=== PATIENT | female | born 1990 | race Caucasian/White ===

== ENCOUNTER 2020-04-17 16:37 | Inpatient (IN) ==
[2020-04-17] MEDS ORDERED: Ondansetron 4 MG/2 ML VIAL IVP PRN (18:36)
[2020-04-17] MEDS ORDERED: Naloxone 0.4 MG/ML INJ IVP PRN (18:36)
[2020-04-17] MEDS ORDERED: Ketorolac 15 MG/ML VIAL IVP PRN (18:36)
[2020-04-17 20:06] LABS: Basophils % 0.3 %; Eosinophils # 0.1 K/mcL (0.0-0.6); Eosinophils % 0.9 %; Hematocrit 33.6 % (35.3-44.9); Hemoglobin 11.1 g/dL (11.5-15.4); Immature Granulocytes % 0.5 % (0-4); Lymphocytes # 2.5 K/mcL (0.6-4.6); Lymphocytes % 28.9 %; Mean Corpuscular Hemoglobin 33.7 pg (28.0-33.3); Mean Corpuscular Volume 102.1 fL (83.0-100.0); Mean Platelet Volume 10.1 fL (9.4-12.4); Monocytes # 1.1 K/mcL (0.0-1.3); Monocytes % 12.9 %; Platelet Count 658 K/mcL (140-400); Red Blood Count 3.29 M/mcL (3.82-4.97); Red Cell Distribution Width 13.2 % (11.5-14.5); Segmented Neutrophils % 56.5 %; White Blood Count 8.8 K/mcL (4.3-11.1)
[2020-04-17 20:19] LABS: Blood Urea Nitrogen 27 mg/dL (6-20); Calcium 8.5 mg/dL (8.6-10.3); Carbon Dioxide 25 mEq/L (23-29); Chloride 101 mEq/L (98-107); Glucose 119 mg/dL (70-105); Osmolality,Calculated 286 (280-300); Potassium 4.2 mEq/L (3.5-5.1); Sodium 135 mEq/L (136-145)
[2020-04-18 01:29] LABS: Basophils % 0.3 %; Eosinophils # 0.1 K/mcL (0.0-0.6); Hematocrit 34.8 % (35.3-44.9); Hemoglobin 11.3 g/dL (11.5-15.4); Immature Granulocytes % 0.7 % (0-4); Lymphocytes # 2.3 K/mcL (0.6-4.6); Lymphocytes % 30.5 %; Mean Corpuscular HGB Conc 32.5 g/dL (31.6-35.5); Mean Corpuscular Hemoglobin 33.4 pg (28.0-33.3); Mean Platelet Volume 10.8 fL (9.4-12.4); Monocytes % 12.7 %; Neutrophils # 4.2 K/mcL (1.6-8.9); Platelet Count 606 K/mcL (140-400); Red Blood Count 3.38 M/mcL (3.82-4.97); Red Cell Distribution Width 13.2 % (11.5-14.5); Segmented Neutrophils % 54.8 %; White Blood Count 7.7 K/mcL (4.3-11.1)
[2020-04-18 01:42] LABS: Blood Urea Nitrogen 26 mg/dL (6-20); Calcium 8.4 mg/dL (8.6-10.3); Carbon Dioxide 22 mEq/L (23-29); Chloride 102 mEq/L (98-107); Glucose 119 mg/dL (70-105); Osmolality,Calculated 286 (280-300); Sodium 135 mEq/L (136-145)
[2020-04-18] MEDS: *HR* Heparin 5,000 UNIT/ML VIAL SQ SCH ×2 (05:37→16:39)
[2020-04-18] MEDS ORDERED: Phenytoin Oral Susp 100 MG/4 ML UDC GTUBE SCH (10:45)
[2020-04-18] MEDS: Valproic Acid Oral Soln 250 MG/5 ML UDC GTUBE SCH ×2 (11:22→19:47)
[2020-04-18] MEDS: Baclofen 10 MG TABLET GTUBE SCH ×3 (13:29→19:48)
[2020-04-18] MEDS: diazePAM 5 MG TABLET PO SCH ×2 (13:29→19:48)
[2020-04-18 14:41] LABS: Troponin I < 0.03 ng/mL (< 0.04)
[2020-04-18 18:52] LABS: Thyroid Stimulating Hormone 6.114 mcIU/mL (0.340-5.600)
[2020-04-18] MEDS: Phenytoin Oral Susp 100 MG/4 ML UDC GTUBE SCH (19:48)
[2020-04-19 03:28] LABS: Basophils % 0.3 %; Eosinophils # 0.1 K/mcL (0.0-0.6); Eosinophils % 0.8 %; Hematocrit 33.7 % (35.3-44.9); Hemoglobin 10.8 g/dL (11.5-15.4); Immature Granulocytes % 0.3 % (0-4); Lymphocytes # 2.3 K/mcL (0.6-4.6); Lymphocytes % 30.8 %; Mean Corpuscular Hemoglobin 33.2 pg (28.0-33.3); Mean Corpuscular Volume 103.7 fL (83.0-100.0); Mean Platelet Volume 9.6 fL (9.4-12.4); Monocytes # 0.8 K/mcL (0.0-1.3); Monocytes % 11.1 %; Neutrophils # 4.3 K/mcL (1.6-8.9); Platelet Count 695 K/mcL (140-400); Red Blood Count 3.25 M/mcL (3.82-4.97); Segmented Neutrophils % 56.7 %; White Blood Count 7.6 K/mcL (4.3-11.1)
[2020-04-19 03:54] LABS: Blood Urea Nitrogen 23 mg/dL (6-20); Calcium 7.9 mg/dL (8.6-10.3); Carbon Dioxide 25 mEq/L (23-29); Chloride 101 mEq/L (98-107); Glucose 105 mg/dL (70-105); Osmolality,Calculated 282 (280-300); Potassium 3.9 mEq/L (3.5-5.1); Sodium 134 mEq/L (136-145)
[2020-04-19] MEDS: *HR* Heparin 5,000 UNIT/ML VIAL SQ SCH (04:45)
[2020-04-19] MEDS ORDERED: Total Joint Mixture (50 ml) INTRAART ONE (06:00)
[2020-04-19] MEDS: Valproic Acid Oral Soln 250 MG/5 ML UDC GTUBE SCH ×2 (10:17→23:46)
[2020-04-19] MEDS: Phenytoin Oral Susp 100 MG/4 ML UDC GTUBE SCH (10:17)
[2020-04-19] MEDS: Baclofen 10 MG TABLET GTUBE SCH ×4 (10:18→23:45)
[2020-04-19] MEDS: diazePAM 5 MG TABLET PO SCH ×3 (10:18→23:47)
[2020-04-19] MEDS ORDERED: *HR* FentaNYL (PF) 100 MCG/2 ML VIAL ONE (15:41)
[2020-04-19] MEDS ORDERED: *HR* Midazolam HCl 2 MG/2 ML VIAL ONE (15:41)
[2020-04-19] MEDS ORDERED: Acetaminophen IV 1,000 MG/100 ML INFUS..BTL ONE (15:57)
[2020-04-19] MEDS ORDERED: Ethanol\\Acetic Acid\\Na Ace\\Ben 1,000 ML IRRIG.SOLN IR ONE (16:01)
[2020-04-19] MEDS ORDERED: Vancomycin 1,000 MG VIAL ONE (16:01)
[2020-04-19] MEDS ORDERED: *HR* Propofol 200 MG/20 ML VIAL IVP ONE (16:06)
[2020-04-19] MEDS ORDERED: Lidocaine -MPF 2% 2 ML VIAL ONE ×2 (16:08→18:16)
[2020-04-19 16:29] LABS: Hematocrit 34.2 % (35.3-44.9); Hemoglobin 10.9 g/dL (11.5-15.4)
[2020-04-19] MEDS ORDERED: Clindamycin 900 MG/50 ML 900 MG/50 ML IV.SOLN IVPB ONE ×2 (17:39→17:46)
[2020-04-19] MEDS ORDERED: Tranexamic Acid 1,000 MG/10 ML VIAL ONE (17:56)
[2020-04-19] MEDS ORDERED: Lidocaine HCL 4 ML Topical Solution (Laryng-O-Jet Kit Sterile Pak) TP ONE (18:16)
[2020-04-19] MEDS ORDERED: Ondansetron 4 MG/2 ML VIAL ONE (18:16)
[2020-04-19] MEDS ORDERED: *HR* Rocuronium Bromide 50 MG/5 ML VIAL ONE (18:16)
[2020-04-19] MEDS ORDERED: Dexamethasone 4 MG/ML VIAL ONE (18:18)
[2020-04-19 19:30] LABS: Albumin 3.1 g/dL (3.5-5.7)
[2020-04-19] MEDS ORDERED: *HR* HYDROmorphone (PF) 1 MG/ML SYRINGE IVP PRN (19:43)
[2020-04-19] MEDS ORDERED: Ondansetron 4 MG/2 ML VIAL IVP PRN ×3 (19:43→20:30)
[2020-04-19] MEDS ORDERED: *HR* Promethazine 25 MG/ML VIAL IVP PRN ×2 (19:46→20:30)
[2020-04-19] MEDS ORDERED: MOM Conc 10 ML UD.LIQ PO PRN (20:30)
[2020-04-19] MEDS ORDERED: Ketorolac 15 MG/ML VIAL IVP PRN (20:30)
[2020-04-19] MEDS ORDERED: Ropivacaine/PF 0.5% 24.62 ML, EPINEPHrine 0.25 MG, cloNIDine 0.04 MG, Ketorolac 15 MG, ... INTRAART ONE (20:30)
[2020-04-19] MEDS ORDERED: Sennosides 8.6 MG TABLET PO PRN (20:30)
[2020-04-19] MEDS ORDERED: Naloxone 0.4 MG/ML INJ IVP PRN ×2 (20:30)
[2020-04-19] MEDS: Clindamycin 900 MG/50 ML 900 MG/50 ML IV.SOLN IVPB SCH (23:45)
[2020-04-19] MEDS: Ringers Solution, Lactated 1,000 ML IVC SCH (23:46)
[2020-04-20 04:13] LABS: Basophils % 0.2 %; Hematocrit 23.8 % (35.3-44.9); Immature Granulocytes % 0.6 % (0-4); Lymphocytes # 1.7 K/mcL (0.6-4.6); Lymphocytes % 19.1 %; Mean Corpuscular HGB Conc 32.4 g/dL (31.6-35.5); Mean Corpuscular Hemoglobin 33.9 pg (28.0-33.3); Mean Corpuscular Volume 104.8 fL (83.0-100.0); Mean Platelet Volume 9.7 fL (9.4-12.4); Monocytes # 0.7 K/mcL (0.0-1.3); Neutrophils # 6.3 K/mcL (1.6-8.9); Platelet Count 623 K/mcL (140-400); Red Blood Count 2.27 M/mcL (3.82-4.97); Segmented Neutrophils % 72.1 %; White Blood Count 8.8 K/mcL (4.3-11.1)
[2020-04-20 04:16] LABS: Hemoglobin 7.7 g/dL (11.5-15.4)
[2020-04-20 04:24] LABS: BUN/Creatinine Ratio 81 (6-26); Blood Urea Nitrogen 26 mg/dL (6-20); Calcium 7.8 mg/dL (8.6-10.3); Carbon Dioxide 22 mEq/L (23-29); Chloride 102 mEq/L (98-107); Glucose 111 mg/dL (70-105); Osmolality,Calculated 285 (280-300); Potassium 4.6 mEq/L (3.5-5.1); Sodium 135 mEq/L (136-145); eGFR For African Americans > 60 (> 60); eGFR For Non-African Americans > 60 (> 60)
[2020-04-20 04:25] LABS: Troponin I < 0.03 ng/mL (< 0.04)
[2020-04-20] MEDS: Ringers Solution, Lactated 1,000 ML IVC SCH (06:58)
[2020-04-20] MEDS ORDERED: 0.9 % Sodium Chloride 250 ML IVC SCH (07:00)
[2020-04-20] MEDS: Clindamycin 900 MG/50 ML 900 MG/50 ML IV.SOLN IVPB SCH (07:30)
[2020-04-20] MEDS ORDERED: *HR* Dextrose 50 % in Water (Vial) 50 ML VIAL IVP PRN (07:55)
[2020-04-20] MEDS ORDERED: Dextrose Gel 15 GM/37.5 ML TUBE PO PRN ×2 (07:55)
[2020-04-20] MEDS ORDERED: 0.9 % Sodium Chloride 500 ML IVC ONE ×2 (07:55→09:10)
[2020-04-20] MEDS ORDERED: D5% in Water 1,000 ML IVC PRN (07:55)
[2020-04-20] MEDS ORDERED: Ascorbic Acid 500 MG TABLET PO SCH (08:00)
[2020-04-20] MEDS ORDERED: Multivit/Ca/Min/Fe/FA 1 TAB TABLET PO SCH (09:00)
[2020-04-20] MEDS: Valproic Acid Oral Soln 250 MG/5 ML UDC GTUBE SCH ×2 (09:31→21:13)
[2020-04-20] MEDS: Multivit/Ca/Min/Fe/FA 1 TAB TABLET GTUBE SCH (09:32)
[2020-04-20] MEDS: Baclofen 10 MG TABLET GTUBE SCH ×4 (09:32→21:11)
[2020-04-20] MEDS: Ascorbic Acid 500 MG TABLET GTUBE SCH ×2 (09:32→18:23)
[2020-04-20] MEDS: Docusate Oral Soln 100 MG/10 ML UDC GTUBE SCH ×2 (09:32→21:13)
[2020-04-20] MEDS: polyethylene glycoL 3350 17 GM POWD.PACK GTUBE SCH (09:33)
[2020-04-20] MEDS: Bisacodyl 10 MG RECTAL SUPPOSITORY RC SCH ×2 (09:33→21:12)
[2020-04-20] MEDS: diazePAM 5 MG TABLET PO SCH ×3 (09:33→21:12)
[2020-04-20] MEDS ORDERED: polyethylene glycoL 3350 17 GM POWD.PACK GTUBE SCH ×2 (10:30)
[2020-04-20] MEDS ORDERED: 0.9 % Sodium Chloride 1,000 ML IVC ONE (14:55)
[2020-04-20] MEDS: Acetaminophen IV 1,000 MG/100 ML INFUS..BTL IVPB SCH ×2 (16:00→22:27)
[2020-04-20 18:38] LABS: Hematocrit 27.5 % (35.3-44.9); Hemoglobin 9.1 g/dL (11.5-15.4)
[2020-04-20] MEDS: Phenytoin Oral Susp 100 MG/4 ML UDC GTUBE SCH (21:12)
[2020-04-20 23:03] LABS: Hematocrit 25.6 % (35.3-44.9); Hemoglobin 8.6 g/dL (11.5-15.4)
[2020-04-21 02:13] LABS: Hematocrit 25.1 % (35.3-44.9); Hemoglobin 8.3 g/dL (11.5-15.4)
[2020-04-21] MEDS ORDERED: Isovue-370 500 ML BOTTLE IVP ONE (02:44)
[2020-04-21 05:58] LABS: Basophils % 0.3 %; Eosinophils % 0.5 %; Hematocrit 25.7 % (35.3-44.9); Hemoglobin 8.6 g/dL (11.5-15.4); Immature Granulocytes % 0.4 % (0-4); Lymphocytes # 1.9 K/mcL (0.6-4.6); Lymphocytes % 24.1 %; Mean Corpuscular HGB Conc 33.5 g/dL (31.6-35.5); Mean Corpuscular Hemoglobin 32.8 pg (28.0-33.3); Mean Platelet Volume 9.2 fL (9.4-12.4); Monocytes # 0.7 K/mcL (0.0-1.3); Neutrophils # 5.1 K/mcL (1.6-8.9); Platelet Count 430 K/mcL (140-400); Red Blood Count 2.62 M/mcL (3.82-4.97); Red Cell Distribution Width 16.5 % (11.5-14.5); Segmented Neutrophils % 65.7 %; White Blood Count 7.8 K/mcL (4.3-11.1)
[2020-04-21 06:00] LABS: Mean Corpuscular Volume 98.1 fL (83.0-100.0)
[2020-04-21 07:00] LABS: Blood Urea Nitrogen 19 mg/dL (6-20); Calcium 7.1 mg/dL (8.6-10.3); Carbon Dioxide 21 mEq/L (23-29); Chloride 103 mEq/L (98-107); Glucose 92 mg/dL (70-105); Magnesium 1.9 mg/dL (1.6-2.6); Osmolality,Calculated 280 (280-300); Potassium 3.7 mEq/L (3.5-5.1); Sodium 134 mEq/L (136-145)
[2020-04-21] MEDS: Acetaminophen IV 1,000 MG/100 ML INFUS..BTL IVPB SCH ×3 (09:03→23:46)
[2020-04-21] MEDS: Valproic Acid Oral Soln 250 MG/5 ML UDC GTUBE SCH ×2 (09:08→21:40)
[2020-04-21] MEDS: Docusate Oral Soln 100 MG/10 ML UDC GTUBE SCH ×2 (09:09→21:39)
[2020-04-21] MEDS: Phenytoin Oral Susp 100 MG/4 ML UDC GTUBE SCH ×2 (09:09→21:39)
[2020-04-21] MEDS: Multivit/Ca/Min/Fe/FA 1 TAB TABLET GTUBE SCH (09:11)
[2020-04-21] MEDS: Ascorbic Acid 500 MG TABLET GTUBE SCH ×2 (09:11→17:22)
[2020-04-21] MEDS: diazePAM 5 MG TABLET PO SCH ×3 (09:11→21:40)
[2020-04-21] MEDS: polyethylene glycoL 3350 17 GM POWD.PACK GTUBE SCH (09:11)
[2020-04-21] MEDS: Baclofen 10 MG TABLET GTUBE SCH ×4 (09:15→21:42)
[2020-04-21] MEDS: Ringers Solution, Lactated 1,000 ML IVC SCH (10:22)
[2020-04-21] MEDS: Bisacodyl 10 MG RECTAL SUPPOSITORY RC SCH (10:22)
[2020-04-21 16:50] LABS: Hematocrit 25.3 % (35.3-44.9); Hemoglobin 8.4 g/dL (11.5-15.4)
[2020-04-21] MEDS: Doxycycline 100 MG in 0.9 % Sodium Chloride Mini Bag 100 ML IVPB SCH (17:13)
[2020-04-21] MEDS: metroNIDAZOLE 500 MG TABLET GTUBE SCH ×2 (17:22→21:42)
[2020-04-22 02:30] LABS: Basophils % 0.2 %; Eosinophils # 0.1 K/mcL (0.0-0.6); Eosinophils % 2.1 %; Hematocrit 24.9 % (35.3-44.9); Hemoglobin 8.2 g/dL (11.5-15.4); Immature Granulocytes % 0.7 % (0-4); Lymphocytes # 1.9 K/mcL (0.6-4.6); Lymphocytes % 30.8 %; Mean Corpuscular HGB Conc 32.9 g/dL (31.6-35.5); Mean Corpuscular Hemoglobin 32.3 pg (28.0-33.3); Mean Platelet Volume 9.8 fL (9.4-12.4); Monocytes # 0.5 K/mcL (0.0-1.3); Monocytes % 8.3 %; Neutrophils # 3.6 K/mcL (1.6-8.9); Platelet Count 412 K/mcL (140-400); Red Blood Count 2.54 M/mcL (3.82-4.97); Red Cell Distribution Width 15.5 % (11.5-14.5); Segmented Neutrophils % 57.9 %; White Blood Count 6.1 K/mcL (4.3-11.1)
[2020-04-22 02:41] LABS: Blood Urea Nitrogen 6 mg/dL (6-20); Calcium 7.4 mg/dL (8.6-10.3); Carbon Dioxide 18 mEq/L (23-29); Chloride 100 mEq/L (98-107); Glucose 81 mg/dL (70-105); Magnesium 1.5 mg/dL (1.6-2.6); Osmolality,Calculated 267 (280-300); Potassium 3.7 mEq/L (3.5-5.1); Sodium 130 mEq/L (136-145)
[2020-04-22] MEDS: Ringers Solution, Lactated 1,000 ML IVC SCH (04:06)
[2020-04-22] MEDS: Doxycycline 100 MG in 0.9 % Sodium Chloride Mini Bag 100 ML IVPB SCH ×2 (05:35→17:54)
[2020-04-22] MEDS: Acetaminophen IV 1,000 MG/100 ML INFUS..BTL IVPB SCH ×3 (07:01→22:46)
[2020-04-22] MEDS: Phenytoin Oral Susp 100 MG/4 ML UDC GTUBE SCH ×2 (09:33→21:13)
[2020-04-22] MEDS: polyethylene glycoL 3350 17 GM POWD.PACK GTUBE SCH (09:33)
[2020-04-22] MEDS: Bisacodyl 10 MG RECTAL SUPPOSITORY RC SCH (09:33)
[2020-04-22] MEDS: Docusate Oral Soln 100 MG/10 ML UDC GTUBE SCH ×2 (09:34→21:13)
[2020-04-22] MEDS: Valproic Acid Oral Soln 250 MG/5 ML UDC GTUBE SCH ×2 (09:34→21:13)
[2020-04-22] MEDS: metroNIDAZOLE 500 MG TABLET GTUBE SCH ×3 (09:34→21:13)
[2020-04-22] MEDS: Multivit/Ca/Min/Fe/FA 1 TAB TABLET GTUBE SCH (09:34)
[2020-04-22] MEDS: diazePAM 5 MG TABLET PO SCH ×3 (09:34→21:13)
[2020-04-22] MEDS: Baclofen 10 MG TABLET GTUBE SCH ×4 (09:34→21:13)
[2020-04-22] MEDS: Ascorbic Acid 500 MG TABLET GTUBE SCH ×2 (09:34→17:19)
[2020-04-23] MEDS: Doxycycline 100 MG in 0.9 % Sodium Chloride Mini Bag 100 ML IVPB SCH (05:29)
[2020-04-23 05:52] LABS: Hematocrit 31.6 % (35.3-44.9)
[2020-04-23 06:00] LABS: Hemoglobin 9.9 g/dL (11.5-15.4)
[2020-04-23] MEDS: Acetaminophen IV 1,000 MG/100 ML INFUS..BTL IVPB SCH ×3 (07:42→23:46)
[2020-04-23] MEDS: Docusate Oral Soln 100 MG/10 ML UDC GTUBE SCH ×2 (07:42→20:54)
[2020-04-23] MEDS: diazePAM 5 MG TABLET PO SCH ×3 (07:43→20:54)
[2020-04-23] MEDS: metroNIDAZOLE 500 MG TABLET GTUBE SCH ×2 (07:43→15:17)
[2020-04-23] MEDS: Phenytoin Oral Susp 100 MG/4 ML UDC GTUBE SCH ×2 (07:43→20:53)
[2020-04-23] MEDS: Multivit/Ca/Min/Fe/FA 1 TAB TABLET GTUBE SCH (07:43)
[2020-04-23] MEDS: Ascorbic Acid 500 MG TABLET GTUBE SCH ×2 (07:43→16:53)
[2020-04-23] MEDS: Baclofen 10 MG TABLET GTUBE SCH ×4 (07:43→20:54)
[2020-04-23] MEDS: Bisacodyl 10 MG RECTAL SUPPOSITORY RC SCH (07:44)
[2020-04-23 08:23] LABS: Blood Urea Nitrogen 6 mg/dL (6-20); Calcium 7.2 mg/dL (8.6-10.3); Carbon Dioxide 25 mEq/L (23-29); Chloride 99 mEq/L (98-107); Glucose 175 mg/dL (70-105); Magnesium 1.5 mg/dL (1.6-2.6); Osmolality,Calculated 268 (280-300); Sodium 128 mEq/L (136-145)
[2020-04-23] MEDS ORDERED: polyethylene glycoL 3350 17 GM POWD.PACK GTUBE SCH (09:00)
[2020-04-23] MEDS: Valproic Acid Oral Soln 250 MG/5 ML UDC GTUBE SCH ×2 (09:43→20:54)
[2020-04-24] MEDS: Acetaminophen IV 1,000 MG/100 ML INFUS..BTL IVPB SCH (06:42)
[2020-04-24 07:32] LABS: Blood Urea Nitrogen 8 mg/dL (6-20); Calcium 6.9 mg/dL (8.6-10.3); Carbon Dioxide 24 mEq/L (23-29); Chloride 100 mEq/L (98-107); Glucose 135 mg/dL (70-105); Magnesium 1.9 mg/dL (1.6-2.6); Osmolality,Calculated 266 (280-300); Potassium 4.7 mEq/L (3.5-5.1); Sodium 128 mEq/L (136-145)
[2020-04-24] MEDS: Valproic Acid Oral Soln 250 MG/5 ML UDC GTUBE SCH (09:03)
[2020-04-24] MEDS: Docusate Oral Soln 100 MG/10 ML UDC GTUBE SCH (09:03)
[2020-04-24] MEDS: Ascorbic Acid 500 MG TABLET GTUBE SCH (09:04)
[2020-04-24] MEDS: Bisacodyl 10 MG RECTAL SUPPOSITORY RC SCH (09:04)
[2020-04-24] MEDS: Baclofen 10 MG TABLET GTUBE SCH ×2 (09:04→12:49)
[2020-04-24] MEDS: Multivit/Ca/Min/Fe/FA 1 TAB TABLET GTUBE SCH (09:05)
[2020-04-24] MEDS: diazePAM 5 MG TABLET PO SCH (09:05)
[2020-04-24] MEDS: Phenytoin Oral Susp 100 MG/4 ML UDC GTUBE SCH ×2 (09:06→13:22)
[2020-04-24 15:18] VITALS: BP 85/60
== END 2020-04-24 19:00 | DRG 470 ==
LOC: 3NENU → SUATTDRO 18:36
PROVIDERS: ADMIT Internal Medicine; ATTEND Internal Medicine

== ENCOUNTER 2020-07-17 00:02 | Inpatient (IN) ==
[2020-07-17] MEDS ORDERED: Ondansetron 4 MG/2 ML VIAL IVP PRN (01:26)
[2020-07-17] MEDS ORDERED: Naloxone 0.4 MG/ML INJ IVP PRN (01:26)
[2020-07-17] MEDS ORDERED: Valproic Acid INJ 1,000 MG in 0.9 % Sodium Chloride 100 ML IVPB ONE (01:33)
[2020-07-17] MEDS: Ringers Solution, Lactated 1,000 ML IVC SCH ×2 (03:38→11:06)
[2020-07-17 04:57] LABS: Basophils % 0.4 %; Eosinophils % 0.4 %; Hematocrit 34.2 % (35.3-44.9); Hemoglobin 11.6 g/dL (11.5-15.4); Immature Granulocytes % 0.1 % (0-4); Lymphocytes % 23.9 %; Mean Corpuscular HGB Conc 33.9 g/dL (31.6-35.5); Mean Corpuscular Hemoglobin 34.9 pg (28.0-33.3); Mean Platelet Volume 11.5 fL (9.4-12.4); Monocytes # 0.9 K/mcL (0.0-1.3); Neutrophils # 5.4 K/mcL (1.6-8.9); Platelet Count 254 K/mcL (140-400); Red Blood Count 3.32 M/mcL (3.82-4.97); Red Cell Distribution Width 12.1 % (11.5-14.5); Segmented Neutrophils % 64.2 %; White Blood Count 8.5 K/mcL (4.3-11.1)
[2020-07-17 05:01] LABS: INR 1.3; Prothrombin Time 14.6 Seconds (9.4-12.1)
[2020-07-17 05:19] LABS: Alanine Aminotransferase 14 Units/L (7-52); Albumin 3.8 g/dL (3.5-5.7); Albumin/Globulin Ratio 1.4 (1.1-2.2); Alkaline Phosphatase 93 Units/L (34-104); Aspartate Amino Transferase 18 Units/L (13-39); BUN/Creatinine Ratio 75 (6-26); Bilirubin,Total 0.4 mg/dL (0.3-1.0); Blood Urea Nitrogen 18 mg/dL (6-20); Calcium 8.5 mg/dL (8.6-10.3); Carbon Dioxide 22 mEq/L (23-29); Chloride 106 mEq/L (98-107); Chol/HDL Ratio 2.9 (0-4.9); Cholesterol 109 mg/dL (< 200); Globulin 2.7 g/dL (2.4-3.5); Glucose 117 mg/dL (70-105); HDL Cholesterol 37 mg/dL (40-59); LDL Cholesterol,Calculated 62 mg/dL (< 100); Magnesium 1.9 mg/dL (1.6-2.6); Osmolality,Calculated 283 (280-300); Potassium 4.1 mEq/L (3.5-5.1); Sodium 135 mEq/L (136-145); Total Protein 6.5 g/dL (6.4-8.9); Triglycerides 48 mg/dL (< 150); eGFR For African Americans > 60 (> 60); eGFR For Non-African Americans > 60 (> 60)
[2020-07-17] MEDS ORDERED: Acetaminophen 325 MG TABLET PO PRN (09:02)
[2020-07-17] MEDS ORDERED: hydrOXYzine pamoate 25 MG CAPSULE PO PRN (09:02)
[2020-07-17] MEDS: Bisacodyl 10 MG RECTAL SUPPOSITORY RC SCH (11:07)
[2020-07-17] MEDS: Multivitamin Liquid 15 ML UDC GTUBE SCH (11:07)
[2020-07-17] MEDS: Valproic Acid INJ 250 MG in 0.9 % Sodium Chloride 100 ML IVPB SCH ×2 (11:08→17:57)
[2020-07-17] MEDS: Phenytoin 250 MG, 0.22 MICRON FILTER SET 1 EACH in 0.9 % Sodium Chloride 50 ML IVPB SCH ×2 (14:28→21:32)
[2020-07-17] MEDS: diazePAM 5 MG TABLET PO SCH ×2 (14:29→21:32)
[2020-07-17] MEDS: Baclofen 10 MG TABLET GTUBE SCH ×3 (14:29→21:32)
[2020-07-17] MEDS ORDERED: HydrOXYzine SYP 10 MG/5 ML UDC GTUBE PRN (14:46)
[2020-07-17] MEDS ORDERED: Phenytoin Oral Susp 100 MG/4 ML UDC GTUBE SCH (23:00)
[2020-07-18] MEDS: Valproic Acid INJ 250 MG in 0.9 % Sodium Chloride 100 ML IVPB SCH (01:34)
[2020-07-18] MEDS: *HR* Enoxaparin 40 MG/0.4 ML SYRINGE SQ SCH (06:40)
[2020-07-18 07:38] LABS: Basophils % 0.4 %; Eosinophils # 0.1 K/mcL (0.0-0.6); Eosinophils % 0.6 %; Hematocrit 35.5 % (35.3-44.9); Hemoglobin 12.4 g/dL (11.5-15.4); Immature Granulocytes % 0.2 % (0-4); Lymphocytes # 1.9 K/mcL (0.6-4.6); Lymphocytes % 18.6 %; Mean Corpuscular HGB Conc 34.9 g/dL (31.6-35.5); Mean Corpuscular Hemoglobin 36.3 pg (28.0-33.3); Mean Corpuscular Volume 103.8 fL (83.0-100.0); Mean Platelet Volume 11.5 fL (9.4-12.4); Monocytes # 0.7 K/mcL (0.0-1.3); Monocytes % 7.2 %; Neutrophils # 7.4 K/mcL (1.6-8.9); Platelet Count 238 K/mcL (140-400); Red Blood Count 3.42 M/mcL (3.82-4.97); Red Cell Distribution Width 11.8 % (11.5-14.5); White Blood Count 10.2 K/mcL (4.3-11.1)
[2020-07-18 07:56] LABS: BUN/Creatinine Ratio 82 (6-26); Blood Urea Nitrogen 18 mg/dL (6-20); Carbon Dioxide 16 mEq/L (23-29); Chloride 104 mEq/L (98-107); Glucose 66 mg/dL (70-105); Osmolality,Calculated 278 (280-300); Potassium 3.6 mEq/L (3.5-5.1); Sodium 134 mEq/L (136-145); eGFR For African Americans > 60 (> 60); eGFR For Non-African Americans > 60 (> 60)
[2020-07-18 07:57] LABS: Magnesium 1.6 mg/dL (1.6-2.6); Phosphorous 4.2 mg/dL (2.7-4.5)
[2020-07-18] MEDS ORDERED: Valproic Acid INJ 500 MG in 0.9 % Sodium Chloride 100 ML IVPB SCH (10:00)
[2020-07-18] MEDS: Multivitamin Liquid 15 ML UDC GTUBE SCH (10:19)
[2020-07-18] MEDS: diazePAM 5 MG TABLET PO SCH ×3 (10:20→21:58)
[2020-07-18] MEDS: Baclofen 10 MG TABLET GTUBE SCH ×4 (10:20→21:58)
[2020-07-18] MEDS: Bisacodyl 10 MG RECTAL SUPPOSITORY RC SCH (10:20)
[2020-07-18] MEDS: Phenytoin 250 MG, 0.22 MICRON FILTER SET 1 EACH in 0.9 % Sodium Chloride 50 ML IVPB SCH ×2 (10:21→13:41)
[2020-07-18] MEDS ORDERED: *HR* Dextrose 50 % in Water (Vial) 50 ML VIAL IVP ONE (17:20)
[2020-07-18] MEDS: Valproic Acid INJ 500 MG in 0.9 % Sodium Chloride 100 ML IVPB SCH (22:10)
[2020-07-19] MEDS ORDERED: Phenytoin 250 MG, 0.22 MICRON FILTER SET 1 EACH in 0.9 % Sodium Chloride 50 ML IVPB SCH (02:00)
[2020-07-19] MEDS: *HR* Enoxaparin 40 MG/0.4 ML SYRINGE SQ SCH (06:14)
[2020-07-19] MEDS: Valproic Acid INJ 500 MG in 0.9 % Sodium Chloride 100 ML IVPB SCH (06:39)
[2020-07-19 08:44] LABS: Basophils % 0.4 %; Eosinophils # 0.1 K/mcL (0.0-0.6); Eosinophils % 2.2 %; Hematocrit 35.4 % (35.3-44.9); Hemoglobin 12.3 g/dL (11.5-15.4); Immature Granulocytes % 0.5 % (0-4); Lymphocytes # 1.6 K/mcL (0.6-4.6); Mean Corpuscular HGB Conc 34.7 g/dL (31.6-35.5); Mean Corpuscular Hemoglobin 34.4 pg (28.0-33.3); Mean Corpuscular Volume 98.9 fL (83.0-100.0); Mean Platelet Volume 11.7 fL (9.4-12.4); Monocytes # 0.7 K/mcL (0.0-1.3); Monocytes % 12.2 %; Neutrophils # 3.1 K/mcL (1.6-8.9); Platelet Count 246 K/mcL (140-400); Red Blood Count 3.58 M/mcL (3.82-4.97); Red Cell Distribution Width 11.7 % (11.5-14.5); Segmented Neutrophils % 55.7 %; White Blood Count 5.5 K/mcL (4.3-11.1)
[2020-07-19 09:09] LABS: BUN/Creatinine Ratio 77 (6-26); Blood Urea Nitrogen 17 mg/dL (6-20); Calcium 8.9 mg/dL (8.6-10.3); Carbon Dioxide 22 mEq/L (23-29); Chloride 108 mEq/L (98-107); Glucose 126 mg/dL (70-105); Osmolality,Calculated 289 (280-300); Potassium 3.8 mEq/L (3.5-5.1); Sodium 138 mEq/L (136-145); eGFR For African Americans > 60 (> 60); eGFR For Non-African Americans > 60 (> 60)
[2020-07-19] MEDS: Bisacodyl 10 MG RECTAL SUPPOSITORY RC SCH (10:12)
[2020-07-19] MEDS: Multivitamin Liquid 15 ML UDC GTUBE SCH (10:12)
[2020-07-19] MEDS: diazePAM 5 MG TABLET PO SCH ×3 (10:12→21:42)
[2020-07-19] MEDS: Baclofen 10 MG TABLET GTUBE SCH ×4 (10:12→21:42)
[2020-07-19] MEDS: Valproic Acid Oral Soln 250 MG/5 ML UDC GTUBE SCH (21:42)
[2020-07-19] MEDS: Phenytoin Oral Susp 100 MG/4 ML UDC GTUBE SCH (21:42)
[2020-07-20] MEDS: *HR* Enoxaparin 40 MG/0.4 ML SYRINGE SQ SCH (06:13)
[2020-07-20 07:54] VITALS: BP 102/66
[2020-07-20 08:55] LABS: Basophils % 0.3 %; Eosinophils # 0.3 K/mcL (0.0-0.6); Eosinophils % 3.4 %; Hematocrit 40.1 % (35.3-44.9); Hemoglobin 13.5 g/dL (11.5-15.4); Immature Granulocytes % 0.3 % (0-4); Lymphocytes # 1.8 K/mcL (0.6-4.6); Lymphocytes % 23.3 %; Mean Corpuscular HGB Conc 33.7 g/dL (31.6-35.5); Mean Corpuscular Hemoglobin 34.3 pg (28.0-33.3); Mean Corpuscular Volume 101.8 fL (83.0-100.0); Mean Platelet Volume 11.5 fL (9.4-12.4); Monocytes # 0.5 K/mcL (0.0-1.3); Neutrophils # 5.1 K/mcL (1.6-8.9); Platelet Count 229 K/mcL (140-400); Red Blood Count 3.94 M/mcL (3.82-4.97); Red Cell Distribution Width 12.1 % (11.5-14.5); Segmented Neutrophils % 65.7 %; White Blood Count 7.7 K/mcL (4.3-11.1)
[2020-07-20 09:13] LABS: Blood Urea Nitrogen 17 mg/dL (6-20); Calcium 8.7 mg/dL (8.6-10.3); Carbon Dioxide 25 mEq/L (23-29); Chloride 106 mEq/L (98-107); Glucose 142 mg/dL (70-105); Osmolality,Calculated 288 (280-300); Potassium 3.9 mEq/L (3.5-5.1); Sodium 137 mEq/L (136-145)
[2020-07-20] MEDS: Phenytoin Oral Susp 100 MG/4 ML UDC GTUBE SCH (09:42)
[2020-07-20] MEDS: Valproic Acid Oral Soln 250 MG/5 ML UDC GTUBE SCH (09:43)
[2020-07-20] MEDS: diazePAM 5 MG TABLET PO SCH (09:44)
[2020-07-20] MEDS: Multivitamin Liquid 15 ML UDC GTUBE SCH (09:44)
[2020-07-20] MEDS: Baclofen 10 MG TABLET GTUBE SCH ×2 (09:44→14:15)
[2020-07-20] MEDS: Bisacodyl 10 MG RECTAL SUPPOSITORY RC SCH (09:44)
[2020-07-20 12:54] LABS: Adenovirus Not Detected (Not Detect); Bordetella Pertussis Not Detected (Not Detect); Chlamydophila pneumoniae Not Detected (Not Detect); Coronavirus 229E Not Detected (Not Detect); Coronavirus HKU1 Not Detected (Not Detect); Coronavirus NL63 Not Detected (Not Detect); Coronavirus OC43 Not Detected (Not Detect); Human Metapneumovirus Not Detected (Not Detect); Human Rhinovirus/Enterovirus Not Detected (Not Detect); Influenza A Subtype 2009 H1 Not Detected (Not Detect); Influenza B Not Detected (Not Detect); Mycoplasma pneumoniae Not Detected (Not Detect); Parainfluenza Virus 1 Not Detected (Not Detect); Parainfluenza Virus 2 Not Detected (Not Detect); Parainfluenza Virus 3 Not Detected (Not Detect); Parainfluenza Virus 4 Not Detected (Not Detect); Respiratory Syncytial Virus Not Detected (Not Detect); SARS-CoV-2 Not Detected (Not Detect)
== END 2020-07-20 15:24 | DRG 389 ==
LOC: 3ANU → SUATTDRO 14:08
PROVIDERS: ADMIT Family Medicine; ATTEND Family Medicine

== ENCOUNTER 2020-10-03 05:44 | Inpatient (IN) ==
[2020-10-03] MEDS ORDERED: Naloxone 0.4 MG/ML INJ IVP PRN (07:24)
[2020-10-03] MEDS ORDERED: Acetaminophen 325 MG TABLET PO PRN (07:24)
[2020-10-03] MEDS ORDERED: Ondansetron 4 MG/2 ML VIAL IVP PRN (07:24)
[2020-10-03] MEDS ORDERED: levoFLOXacin 750 MG/150 ML 750 MG/150 ML BAG IVPB SCH (09:00)
[2020-10-03] MEDS: 0.9 % Sodium Chloride 1,000 ML IVC SCH ×3 (09:58→13:18)
[2020-10-03] MEDS: *HR* Heparin 5,000 UNIT/ML VIAL SQ SCH ×2 (13:19→22:30)
[2020-10-03] MEDS ORDERED: MOM Conc 10 ML UD.LIQ PO PRN (20:35)
[2020-10-03] MEDS ORDERED: Bisacodyl 10 MG RECTAL SUPPOSITORY RC PRN (20:35)
[2020-10-03] MEDS ORDERED: HydrOXYzine SYP 10 MG/5 ML UDC GTUBE PRN (20:35)
[2020-10-03] MEDS: Baclofen 10 MG TABLET GTUBE SCH (22:29)
[2020-10-03] MEDS: *HR* HYDROcodone/Acet 5/325 mg TABLET PO SCH (22:30)
[2020-10-03] MEDS: Valproic Acid Oral Soln 250 MG/5 ML UDC GTUBE SCH (23:09)
[2020-10-03] MEDS: Phenytoin Oral Susp 100 MG/4 ML UDC GTUBE SCH (23:09)
[2020-10-04 02:24] LABS: Hematocrit 31.6 % (35.3-44.9); Hemoglobin 10.1 g/dL (11.5-15.4); Mean Corpuscular Hemoglobin 34.6 pg (28.0-33.3); Mean Corpuscular Volume 108.2 fL (83.0-100.0); Platelet Count 199 K/mcL (140-400); Red Blood Count 2.92 M/mcL (3.82-4.97)
[2020-10-04 02:47] LABS: Blood Urea Nitrogen 22 mg/dL (6-20); Calcium 8.2 mg/dL (8.6-10.3); Carbon Dioxide 24 mEq/L (23-29); Chloride 113 mEq/L (98-107); Glucose 122 mg/dL (70-105); Osmolality,Calculated 299 (280-300); Potassium 3.7 mEq/L (3.5-5.1); Sodium 142 mEq/L (136-145)
[2020-10-04] MEDS: diazePAM 5 MG TABLET PO SCH ×3 (05:58→18:10)
[2020-10-04] MEDS: 0.9 % Sodium Chloride 1,000 ML IVC SCH (05:59)
[2020-10-04] MEDS: *HR* Heparin 5,000 UNIT/ML VIAL SQ SCH ×3 (05:59→21:10)
[2020-10-04] MEDS ORDERED: levoFLOXacin 750 MG/150 ML 750 MG/150 ML BAG IVPB SCH (09:00)
[2020-10-04] MEDS ORDERED: EPINEPHrine 1 MG/ML VIAL IM PRN (09:26)
[2020-10-04] MEDS: Baclofen 10 MG TABLET GTUBE SCH ×4 (09:28→21:10)
[2020-10-04] MEDS: *HR* HYDROcodone/Acet 5/325 mg TABLET PO SCH ×4 (09:28→21:10)
[2020-10-04] MEDS: Valproic Acid Oral Soln 250 MG/5 ML UDC GTUBE SCH ×2 (09:29→21:10)
[2020-10-04 11:37] LABS: Adenovirus Not Detected (Not Detect); Bordetella Pertussis Not Detected (Not Detect); Chlamydophila pneumoniae Not Detected (Not Detect); Coronavirus 229E Not Detected (Not Detect); Coronavirus HKU1 Not Detected (Not Detect); Coronavirus NL63 Not Detected (Not Detect); Coronavirus OC43 Not Detected (Not Detect); Human Metapneumovirus Not Detected (Not Detect); Human Rhinovirus/Enterovirus Not Detected (Not Detect); Influenza A Subtype 2009 H1 Not Detected (Not Detect); Influenza B Not Detected (Not Detect); Mycoplasma pneumoniae Not Detected (Not Detect); Parainfluenza Virus 1 Not Detected (Not Detect); Parainfluenza Virus 2 Not Detected (Not Detect); Parainfluenza Virus 3 Not Detected (Not Detect); Parainfluenza Virus 4 Not Detected (Not Detect); Respiratory Syncytial Virus Not Detected (Not Detect); SARS-CoV-2 Not Detected (Not Detect)
[2020-10-04] MEDS: Ampicillin/Sulbactam 3,000 MG in 0.9 % Sodium Chloride Mini Bag 100 ML IVPB SCH ×2 (13:24→20:27)
[2020-10-04] MEDS: Phenytoin Oral Susp 100 MG/4 ML UDC GTUBE SCH (21:09)
[2020-10-05] MEDS: Ampicillin/Sulbactam 3,000 MG in 0.9 % Sodium Chloride Mini Bag 100 ML IVPB SCH ×4 (01:11→17:21)
[2020-10-05 01:42] LABS: Basophils % 0.4 %; Eosinophils # 0.2 K/mcL (0.0-0.6); Eosinophils % 3.9 %; Hematocrit 32.6 % (35.3-44.9); Immature Granulocytes % 0.2 % (0-4); Lymphocytes # 2.5 K/mcL (0.6-4.6); Lymphocytes % 44.1 %; Mean Corpuscular HGB Conc 33.7 g/dL (31.6-35.5); Mean Corpuscular Hemoglobin 35.5 pg (28.0-33.3); Mean Corpuscular Volume 105.2 fL (83.0-100.0); Mean Platelet Volume 11.7 fL (9.4-12.4); Monocytes # 0.4 K/mcL (0.0-1.3); Monocytes % 6.2 %; Neutrophils # 2.6 K/mcL (1.6-8.9); Platelet Count 197 K/mcL (140-400); Red Cell Distribution Width 11.6 % (11.5-14.5); Segmented Neutrophils % 45.2 %; White Blood Count 5.7 K/mcL (4.3-11.1)
[2020-10-05 02:05] LABS: Alanine Aminotransferase 15 Units/L (7-52); Albumin 3.4 g/dL (3.5-5.7); Albumin/Globulin Ratio 1.3 (1.1-2.2); Alkaline Phosphatase 66 Units/L (34-104); Aspartate Amino Transferase 10 Units/L (13-39); BUN/Creatinine Ratio 38 (6-26); Bilirubin,Total 0.3 mg/dL (0.3-1.0); Blood Urea Nitrogen 8 mg/dL (6-20); Calcium 8.4 mg/dL (8.6-10.3); Carbon Dioxide 26 mEq/L (23-29); Chloride 105 mEq/L (98-107); Globulin 2.6 g/dL (2.4-3.5); Glucose 104 mg/dL (70-105); Osmolality,Calculated 285 (280-300); Phosphorous 3.6 mg/dL (2.7-4.5); Potassium 4.1 mEq/L (3.5-5.1); Sodium 138 mEq/L (136-145); eGFR For African Americans > 60 (> 60); eGFR For Non-African Americans > 60 (> 60)
[2020-10-05] MEDS: *HR* Heparin 5,000 UNIT/ML VIAL SQ SCH ×2 (06:14→17:20)
[2020-10-05] MEDS: diazePAM 5 MG TABLET PO SCH ×2 (06:14→12:42)
[2020-10-05] MEDS: *HR* HYDROcodone/Acet 5/325 mg TABLET PO SCH ×3 (08:17→17:20)
[2020-10-05] MEDS: Baclofen 10 MG TABLET GTUBE SCH ×3 (08:17→17:20)
[2020-10-05] MEDS ORDERED: Multivitamin Liquid 15 ML UDC GTUBE SCH (09:00)
[2020-10-05] MEDS: Valproic Acid Oral Soln 250 MG/5 ML UDC GTUBE SCH (09:20)
[2020-10-05 15:45] VITALS: BP 92/61
[2020-10-05] MEDS ORDERED: polyethylene glycoL 3350 17 GM POWD.PACK GTUBE SCH (20:35)
== END 2020-10-05 19:00 | DRG 871 ==
LOC: 3NENU → OBSVTOIN 07:14 → SUATTDRO 07:14 → 3NENU 10-04 03:20
PROVIDERS: ADMIT Family Medicine; ATTEND Internal Medicine

== ENCOUNTER 2021-05-09 11:21 | Inpatient (IN) ==
[2021-05-09] MEDS ORDERED: Acetaminophen 325 MG TABLET PO PRN (15:31)
[2021-05-09] MEDS ORDERED: Ondansetron 4 MG/2 ML VIAL IVP PRN (15:31)
[2021-05-09] MEDS ORDERED: Naloxone 0.4 MG/ML INJ IVP PRN (15:31)
[2021-05-09] MEDS ORDERED: Melatonin 3 MG TABLET PO PRN (15:31)
[2021-05-09] MEDS ORDERED: 0.9 % Sodium Chloride 1,000 ML IVC SCH (15:45)
[2021-05-09] MEDS ORDERED: Acetaminophen 650 MG RECTAL SUPP RC PRN (16:12)
[2021-05-09] MEDS: D5% in Water 1,000 ML IVC SCH (16:59)
[2021-05-09] MEDS: Piperacillin/Tazobactam 3.375 GM in 0.9 % Sodium Chloride Mini Bag 100 ML IVPB SCH (19:30)
[2021-05-09 23:21] LABS: BUN/Creatinine Ratio 64 (6-26); Blood Urea Nitrogen 36 mg/dL (6-20); Calcium 7.8 mg/dL (8.6-10.3); Carbon Dioxide 23 mEq/L (23-29); Chloride 121 mEq/L (98-107); Glucose 151 mg/dL (70-105); Osmolality,Calculated 325 (280-300); Potassium 3.3 mEq/L (3.5-5.1); Sodium 152 mEq/L (136-145); eGFR For African Americans > 60 (> 60); eGFR For Non-African Americans > 60 (> 60)
[2021-05-10] MEDS: D5% in Water 1,000 ML IVC SCH (03:26)
[2021-05-10] MEDS: Piperacillin/Tazobactam 3.375 GM in 0.9 % Sodium Chloride Mini Bag 100 ML IVPB SCH ×3 (04:49→20:01)
[2021-05-10] MEDS: *HR* Enoxaparin 40 MG/0.4 ML SYRINGE SQ SCH (04:50)
[2021-05-10 08:13] LABS: BUN/Creatinine Ratio 81 (6-26); Blood Urea Nitrogen 35 mg/dL (6-20); Carbon Dioxide 22 mEq/L (23-29); Chloride 118 mEq/L (98-107); Glucose 153 mg/dL (70-105); Magnesium 3.2 mg/dL (1.6-2.6); Osmolality,Calculated 313 (280-300); Phosphorous 4.8 mg/dL (2.7-4.5); Potassium 3.6 mEq/L (3.5-5.1); Sodium 146 mEq/L (136-145); eGFR For African Americans > 60 (> 60); eGFR For Non-African Americans > 60 (> 60)
[2021-05-10] MEDS ORDERED: *HR* HYDROcodone/Acet 5/325 mg TABLET PO PRN (08:46)
[2021-05-10] MEDS ORDERED: Acetaminophen 325 MG TABLET PO PRN (08:46)
[2021-05-10] MEDS ORDERED: Multivit/Ca/Min/Fe/FA 1 TAB TABLET GTUBE SCH (09:00)
[2021-05-10 09:22] LABS: Basophils % 0.4 %; Eosinophils # 0.1 K/mcL (0.0-0.6); Eosinophils % 0.6 %; Hematocrit 42.4 % (35.3-44.9); Hemoglobin 13.8 g/dL (11.5-15.4); Immature Granulocytes % 0.4 % (0-4); Lymphocytes % 29.9 %; Mean Corpuscular HGB Conc 32.5 g/dL (31.6-35.5); Mean Corpuscular Hemoglobin 34.3 pg (28.0-33.3); Mean Corpuscular Volume 105.5 fL (83.0-100.0); Monocytes # 0.6 K/mcL (0.0-1.3); Monocytes % 6.5 %; Neutrophils # 6.2 K/mcL (1.6-8.9); Red Blood Count 4.02 M/mcL (3.82-4.97); Red Cell Distribution Width 12.7 % (11.5-14.5); Segmented Neutrophils % 62.2 %; White Blood Count 9.9 K/mcL (4.3-11.1)
[2021-05-10 09:23] LABS: Platelet Count 84 K/mcL (140-400)
[2021-05-10] MEDS: diazePAM 5 MG TABLET PO SCH ×2 (13:07→13:10)
[2021-05-10] MEDS: Baclofen 10 MG TABLET GTUBE SCH ×4 (13:07→20:03)
[2021-05-10] MEDS: polyethylene glycoL 3350 17 GM POWD.PACK GTUBE SCH (13:08)
[2021-05-10] MEDS: Multivitamin Liquid 15 ML UDC GTUBE SCH (13:10)
[2021-05-10] MEDS: Valproic Acid Oral Soln 250 MG/5 ML UDC GTUBE SCH ×2 (13:23→20:08)
[2021-05-10] MEDS: Phenytoin Oral Susp 100 MG/4 ML UDC GTUBE SCH ×2 (13:23→20:03)
[2021-05-10] MEDS ORDERED: HydrOXYzine SYP 10 MG/5 ML UDC GTUBE PRN (13:30)
[2021-05-10 16:01] LABS: BUN/Creatinine Ratio 91 (6-26); Blood Urea Nitrogen 32 mg/dL (6-20); Calcium 8.1 mg/dL (8.6-10.3); Carbon Dioxide 24 mEq/L (23-29); Chloride 115 mEq/L (98-107); Glucose 114 mg/dL (70-105); Osmolality,Calculated 308 (280-300); Potassium 4.4 mEq/L (3.5-5.1); Sodium 145 mEq/L (136-145); eGFR For African Americans > 60 (> 60); eGFR For Non-African Americans > 60 (> 60)
[2021-05-11] MEDS: Piperacillin/Tazobactam 3.375 GM in 0.9 % Sodium Chloride Mini Bag 100 ML IVPB SCH ×3 (04:33→22:13)
[2021-05-11] MEDS: *HR* Enoxaparin 40 MG/0.4 ML SYRINGE SQ SCH (05:32)
[2021-05-11 09:00] LABS: Immature Granulocytes % 0.2 % (0-4)
[2021-05-11 09:02] LABS: Basophils % 0.5 %; Eosinophils # 0.2 K/mcL (0.0-0.6); Eosinophils % 3.1 %; Hematocrit 34.5 % (35.3-44.9); Hemoglobin 11.4 g/dL (11.5-15.4); Immature Platelets 29.5 % (1.1-6.1); Lymphocytes # 2.7 K/mcL (0.6-4.6); Lymphocytes % 41.8 %; Mean Corpuscular Hemoglobin 35.1 pg (28.0-33.3); Mean Corpuscular Volume 106.2 fL (83.0-100.0); Mean Platelet Volume 14.6 fL (9.4-12.4); Monocytes # 0.3 K/mcL (0.0-1.3); Monocytes % 4.7 %; Neutrophils # 3.2 K/mcL (1.6-8.9); Red Blood Count 3.25 M/mcL (3.82-4.97); Segmented Neutrophils % 49.7 %; White Blood Count 6.4 K/mcL (4.3-11.1)
[2021-05-11 09:12] LABS: BUN/Creatinine Ratio 89 (6-26); Blood Urea Nitrogen 25 mg/dL (6-20); Calcium 7.2 mg/dL (8.6-10.3); Carbon Dioxide 22 mEq/L (23-29); Chloride 112 mEq/L (98-107); Glucose 89 mg/dL (70-105); Osmolality,Calculated 294 (280-300); Potassium 4.3 mEq/L (3.5-5.1); Sodium 140 mEq/L (136-145); eGFR For African Americans > 60 (> 60); eGFR For Non-African Americans > 60 (> 60)
[2021-05-11 09:40] LABS: Platelet Count 79 K/mcL (140-400)
[2021-05-11] MEDS: Baclofen 10 MG TABLET GTUBE SCH ×4 (10:33→22:16)
[2021-05-11] MEDS: Multivitamin Liquid 15 ML UDC GTUBE SCH (10:34)
[2021-05-11] MEDS: Valproic Acid Oral Soln 250 MG/5 ML UDC GTUBE SCH ×2 (10:34→22:16)
[2021-05-11] MEDS: polyethylene glycoL 3350 17 GM POWD.PACK GTUBE SCH (10:34)
[2021-05-11] MEDS: Phenytoin Oral Susp 100 MG/4 ML UDC GTUBE SCH (22:16)
[2021-05-12 03:32] LABS: Basophils % 0.2 %; Hemoglobin 11.7 g/dL (11.5-15.4); Immature Granulocytes % 0.2 % (0-4); Mean Corpuscular Volume 106.5 fL (83.0-100.0)
[2021-05-12 03:34] LABS: Eosinophils # 0.1 K/mcL (0.0-0.6); Eosinophils % 2.9 %; Hematocrit 36.1 % (35.3-44.9); Lymphocytes # 1.9 K/mcL (0.6-4.6); Lymphocytes % 46.2 %; Mean Corpuscular HGB Conc 32.4 g/dL (31.6-35.5); Mean Corpuscular Hemoglobin 34.5 pg (28.0-33.3); Monocytes # 0.2 K/mcL (0.0-1.3); Neutrophils # 1.9 K/mcL (1.6-8.9); Red Blood Count 3.39 M/mcL (3.82-4.97); Red Cell Distribution Width 11.9 % (11.5-14.5); Segmented Neutrophils % 45.5 %; White Blood Count 4.2 K/mcL (4.3-11.1)
[2021-05-12 04:01] LABS: Blood Urea Nitrogen 10 mg/dL (6-20); Calcium 7.7 mg/dL (8.6-10.3); Carbon Dioxide 17 mEq/L (23-29); Chloride 113 mEq/L (98-107); Glucose 78 mg/dL (70-105); Osmolality,Calculated 288 (280-300); Potassium 3.9 mEq/L (3.5-5.1); Sodium 140 mEq/L (136-145)
[2021-05-12 04:05] LABS: Platelet Count 62 K/mcL (140-400)
[2021-05-12] MEDS: Piperacillin/Tazobactam 3.375 GM in 0.9 % Sodium Chloride Mini Bag 100 ML IVPB SCH ×3 (06:15→22:18)
[2021-05-12] MEDS: *HR* Enoxaparin 40 MG/0.4 ML SYRINGE SQ SCH (06:16)
[2021-05-12] MEDS: Baclofen 10 MG TABLET GTUBE SCH ×4 (10:29→20:41)
[2021-05-12] MEDS: Valproic Acid Oral Soln 250 MG/5 ML UDC GTUBE SCH ×2 (10:29→20:40)
[2021-05-12] MEDS: polyethylene glycoL 3350 17 GM POWD.PACK GTUBE SCH (10:30)
[2021-05-12] MEDS: Multivitamin Liquid 15 ML UDC GTUBE SCH (10:30)
[2021-05-12] MEDS: Phenytoin Oral Susp 100 MG/4 ML UDC GTUBE SCH (20:41)
[2021-05-13] MEDS: *HR* Enoxaparin 40 MG/0.4 ML SYRINGE SQ SCH (05:36)
[2021-05-13] MEDS: Piperacillin/Tazobactam 3.375 GM in 0.9 % Sodium Chloride Mini Bag 100 ML IVPB SCH ×2 (05:36→13:48)
[2021-05-13 07:56] LABS: Basophils % 0.4 %; Red Cell Distribution Width 11.6 % (11.5-14.5)
[2021-05-13 07:58] LABS: Eosinophils # 0.1 K/mcL (0.0-0.6); Eosinophils % 2.7 %; Hematocrit 35.9 % (35.3-44.9); Hemoglobin 12.2 g/dL (11.5-15.4); Immature Platelets 34.9 % (1.1-6.1); Lymphocytes % 55.7 %; Mean Corpuscular Hemoglobin 35.2 pg (28.0-33.3); Mean Corpuscular Volume 103.5 fL (83.0-100.0); Monocytes # 0.2 K/mcL (0.0-1.3); Monocytes % 6.7 %; Neutrophils # 0.9 K/mcL (1.6-8.9); Red Blood Count 3.47 M/mcL (3.82-4.97); Segmented Neutrophils % 34.5 %; White Blood Count 2.6 K/mcL (4.3-11.1)
[2021-05-13 08:08] LABS: BUN/Creatinine Ratio 39 (6-26); Blood Urea Nitrogen 9 mg/dL (6-20); Carbon Dioxide 23 mEq/L (23-29); Chloride 108 mEq/L (98-107); Glucose 98 mg/dL (70-105); Osmolality,Calculated 281 (280-300); Potassium 4.1 mEq/L (3.5-5.1); Sodium 136 mEq/L (136-145); eGFR For African Americans > 60 (> 60); eGFR For Non-African Americans > 60 (> 60)
[2021-05-13 08:18] LABS: Lymphocytes # 1.5 K/mcL (0.6-4.6)
[2021-05-13 08:19] LABS: Platelet Count 84 K/mcL (140-400)
[2021-05-13] MEDS: Baclofen 10 MG TABLET GTUBE SCH ×3 (09:48→17:12)
[2021-05-13] MEDS: polyethylene glycoL 3350 17 GM POWD.PACK GTUBE SCH (09:48)
[2021-05-13] MEDS: Multivitamin Liquid 15 ML UDC GTUBE SCH (09:49)
[2021-05-13] MEDS: Valproic Acid Oral Soln 250 MG/5 ML UDC GTUBE SCH (13:48)
[2021-05-13 18:55] VITALS: BP 96/60; PULSE 49; TEMP 97.7; O2SAT 97
== END 2021-05-13 22:23 | DRG 872 ==
LOC: 2NNU → SUATTDRO 16:48 → 2ANU 05-11 19:27
PROVIDERS: ADMIT Hospitalist; ATTEND Hospitalist

== ENCOUNTER 2022-07-27 03:45 | Inpatient (IN) ==
[2022-07-27] MEDS ORDERED: Melatonin 3 MG TABLET PO PRN (07:02)
[2022-07-27] MEDS ORDERED: Ondansetron 4 MG/2 ML VIAL IVP PRN (07:02)
[2022-07-27] MEDS ORDERED: Naloxone 0.4 MG/ML INJ IVP PRN (07:02)
[2022-07-27] MEDS ORDERED: Acetaminophen IV 1,000 MG/100 ML BAG IVPB ONE (07:06)
[2022-07-27 09:12] LABS: Hematocrit 33.8 % (35.3-44.9); Hemoglobin 11.5 g/dL (11.5-15.4); Immature Granulocytes % 0.5 % (0-4); Mean Corpuscular Hemoglobin 35.7 pg (28.0-33.3); Mean Platelet Volume 10.4 fL (9.4-12.4); Platelet Count 234 K/mcL (140-400); Red Blood Count 3.22 M/mcL (3.82-4.97); Red Cell Distribution Width 12.4 % (11.5-14.5); Segmented Neutrophils % 90.9 %; White Blood Count 14.9 K/mcL (4.3-11.1)
[2022-07-27 09:13] LABS: Basophils % 0.1 %; Lymphocytes # 0.5 K/mcL (0.6-4.6); Lymphocytes % 3.1 %; Monocytes # 0.8 K/mcL (0.0-1.3); Monocytes % 5.4 %; Neutrophils # 13.5 K/mcL (1.6-8.9)
[2022-07-27] MEDS: Morphine Sulfate 2 MG/ML SYRINGE IVP ONE ×2 (09:30→16:14)
[2022-07-27 09:34] LABS: ABG Base Excess 1 mEq/L (-2 to 3); ABG HCO3 24 mEq/L (21-27); ABG Oxygen Saturation 88 % (95-98); ABG PCO2 34 mmHg (35-45); ABG PH 7.47 pH Units (7.32-7.45); ABG PO2 51 mmHg (85-104); ABG TCO2 25 mEq/L (20-26)
[2022-07-27] MEDS: Ipratropium 1 PUFF INHALER IH SCH ×5 (09:34→23:20)
[2022-07-27 09:37] LABS: Alanine Aminotransferase 15 Units/L (7-52); Albumin 3.5 g/dL (3.5-5.7); Albumin/Globulin Ratio 1.5 (1.1-2.2); Alkaline Phosphatase 62 Units/L (34-104); Aspartate Amino Transferase 21 Units/L (13-39); BUN/Creatinine Ratio 47 (6-26); Bilirubin,Total 0.4 mg/dL (0.3-1.0); Blood Urea Nitrogen 16 mg/dL (6-20); Calcium 7.5 mg/dL (8.6-10.3); Carbon Dioxide 25 mEq/L (23-29); Chloride 106 mEq/L (98-107); Globulin 2.4 g/dL (2.4-3.5); Glucose 147 mg/dL (70-105); Magnesium 1.9 mg/dL (1.6-2.6); Osmolality,Calculated 288 (280-300); Phosphorous 2.9 mg/dL (2.7-4.5); Potassium 3.5 mEq/L (3.5-5.1); Sodium 137 mEq/L (136-145); Total Protein 5.9 g/dL (6.4-8.9)
[2022-07-27 09:39] LABS: INR 1.4; Prothrombin Time 15.6 Seconds (9.4-12.1)
[2022-07-27 09:42] LABS: Activated Partial Thrombo Time 34.2 Seconds (26.0-36.0)
[2022-07-27] MEDS: levoFLOXacin 750 MG/150 ML 750 MG/150 ML BAG IVPB SCH (12:03)
[2022-07-27] MEDS ORDERED: Remdesivir 200 MG in 0.9 % Sodium Chloride 100 ML IVPB ONE (15:05)
[2022-07-27] MEDS ORDERED: MOM Conc 10 ML UD.LIQ GTUBE PRN (18:43)
[2022-07-27] MEDS ORDERED: Bisacodyl 10 MG RECTAL SUPPOSITORY RC PRN (18:43)
[2022-07-27] MEDS ORDERED: NON-FORMULARY MEDICATION 1 EACH EACH (Na Phos,M-B/Na Phos,Di-Ba [Fleet Enema Extra] 230 ML RC PRN (18:43)
[2022-07-27] MEDS ORDERED: *HR* HYDROcodone/Acet 5/325 mg TABLET GTUBE PRN (18:43)
[2022-07-27] MEDS: diazePAM 5 MG TABLET PO SCH (21:20)
[2022-07-27] MEDS: Baclofen 10 MG TABLET GTUBE SCH (21:20)
[2022-07-27] MEDS: Valproic Acid Oral Soln 250 MG/5 ML UDC GTUBE SCH (21:20)
[2022-07-28] MEDS: Ipratropium 1 PUFF INHALER IH SCH ×5 (04:29→20:03)
[2022-07-28 05:53] LABS: Basophils % 0.1 %; Eosinophils % 0.1 %; Hematocrit 33.5 % (35.3-44.9); Hemoglobin 11.3 g/dL (11.5-15.4); Immature Granulocytes % 0.2 % (0-4); Lymphocytes # 1.5 K/mcL (0.6-4.6); Lymphocytes % 10.9 %; Mean Corpuscular HGB Conc 33.7 g/dL (31.6-35.5); Mean Corpuscular Hemoglobin 35.3 pg (28.0-33.3); Mean Corpuscular Volume 104.7 fL (83.0-100.0); Mean Platelet Volume 10.8 fL (9.4-12.4); Monocytes # 1.2 K/mcL (0.0-1.3); Monocytes % 8.8 %; Platelet Count 214 K/mcL (140-400); Red Cell Distribution Width 12.3 % (11.5-14.5); Segmented Neutrophils % 79.9 %; White Blood Count 13.7 K/mcL (4.3-11.1)
[2022-07-28 05:59] LABS: Alanine Aminotransferase 14 Units/L (7-52); Albumin 3.5 g/dL (3.5-5.7); Albumin/Globulin Ratio 1.5 (1.1-2.2); Alkaline Phosphatase 58 Units/L (34-104); Aspartate Amino Transferase 18 Units/L (13-39); BUN/Creatinine Ratio 55 (6-26); Bilirubin,Indirect 0.3 mg/dL (0.0-1.0); Bilirubin,Total 0.3 mg/dL (0.3-1.0); Blood Urea Nitrogen 11 mg/dL (6-20); Calcium 8.1 mg/dL (8.6-10.3); Carbon Dioxide 25 mEq/L (23-29); Chloride 103 mEq/L (98-107); Globulin 2.4 g/dL (2.4-3.5); Glucose 112 mg/dL (70-105); Osmolality,Calculated 280 (280-300); Potassium 3.9 mEq/L (3.5-5.1); Sodium 135 mEq/L (136-145); Total Protein 5.9 g/dL (6.4-8.9)
[2022-07-28] MEDS ORDERED: *HR* Enoxaparin 40 MG/0.4 ML SYRINGE SQ SCH (06:00)
[2022-07-28] MEDS ORDERED: Multivitamin Liquid 15 ML UDC GTUBE SCH (09:00)
[2022-07-28] MEDS ORDERED: polyethylene glycoL 3350 17 GM POWD.PACK GTUBE SCH (09:00)
[2022-07-28] MEDS ORDERED: Lactulose Oral Soln 20 GM/30 ML UDC GTUBE SCH (09:00)
[2022-07-28] MEDS ORDERED: Pantoprazole 40 MG VIAL IVP SCH (09:00)
[2022-07-28] MEDS ORDERED: Phenytoin Oral Susp 100 MG/4 ML UDC GTUBE SCH (09:00)
[2022-07-28] MEDS: Valproic Acid Oral Soln 250 MG/5 ML UDC GTUBE SCH ×2 (09:11→21:43)
[2022-07-28] MEDS: levoFLOXacin 750 MG/150 ML 750 MG/150 ML BAG IVPB SCH (09:12)
[2022-07-28] MEDS: diazePAM 5 MG TABLET PO SCH ×3 (09:12→21:36)
[2022-07-28] MEDS: Baclofen 10 MG TABLET GTUBE SCH ×4 (09:12→21:36)
[2022-07-28] MEDS ORDERED: Melatonin 3 MG TABLET GTUBE PRN (14:30)
[2022-07-28] MEDS ORDERED: Remdesivir 100 MG in 0.9 % Sodium Chloride 100 ML IVPB SCH (16:00)
[2022-07-28 16:07] VITALS: BP 136/74; PULSE 110; TEMP 99
[2022-07-28 20:05] VITALS: O2SAT 91
[2022-07-28] MEDS ORDERED: Valproic Acid Oral Soln 250 MG/5 ML UDC PO ONE (21:14)
[2022-07-28] MEDS ORDERED: Melatonin 3 MG TABLET PO ONE (21:14)
[2022-07-28] MEDS ORDERED: diazePAM 5 MG TABLET PO ONE (21:58)
[2022-07-28] MEDS ORDERED: Baclofen 10 MG TABLET PO ONE (21:58)
== END 2022-07-28 23:59 | disposition other institution (70) | DRG 871 ==
LOC: 2NENU → SUATTDRO 07:03
PROVIDERS: ADMIT Internal Medicine; ATTEND Family Medicine